=== PATIENT | female | born 1950 | race Caucasian/White ===

== ENCOUNTER 2019-10-19 17:47 | Inpatient (IN) ==
[2019-10-19] MEDS ORDERED: NS 0.9% 1000 ml BAG 1,000 ML IV ONE (19:23)
[2019-10-19] MEDS ORDERED: Morphine 4 MG/ML VIAL (1 ml) IV ONE (19:44)
[2019-10-19] MEDS ORDERED: Ondansetron 4 mg VIAL 2 MG/ML 2 ml VIAL IV ONE (19:45)
[2019-10-19 19:50] LABS: ABS Basophils 0.1 10^3/ul (0-0.2); ABS Eosinophils 0.3 10^3/ul (0-0.6); ABS Lymphocytes 1.2 10^3/ul (1.0-4.8); ABS Monocytes 0.8 10^3/ul (0-0.8); Eosinophil % 2.1 %; Hematocrit 41 % (35-47); Hemoglobin 13.7 g/dL (12.0-16.0); Lymphocyte % 9.7 %; Mean Corpuscular HGB Conc 33 g/dL (31-36); Mean Corpuscular Hemoglobin 31 pg (27-31); Mean Corpuscular Volume 94 fL (80-97); Mean Platelet Volume 6.5 fL (7.4-10.4); Platelet Count 378 10^3/uL (150-450); Red Blood Count 4.35 10^6 /uL (3.70-4.87); Red Cell Distribution Width 13 % (10-15); White Blood Count 12.5 10^3/uL (3.5-10.8)
[2019-10-19 20:08] LABS: Albumin 4.2 g/dL (3.2-5.2); Albumin/Globulin Ratio 1.4 (1-3); BUN/Creatinine Ratio 38.5 (8-20); Calcium 9.8 mg/dL (8.6-10.3); EGFR African American 141.1 (>60); EGFR Non-African American 116.6 (>60); Globulin 2.9 g/dL (2-4); Potassium 3.9 mmol/L (3.5-5.0); Total Bilirubin 0.3 mg/dL (0.2-1.0); Total Protein 7.1 g/dL (6.4-8.9)
[2019-10-19 20:09] LABS: Troponin I 0.01 ng/mL (<0.03)
[2019-10-19] MEDS ORDERED: Albuterol HFA INHALER 8 gm MDI INH PRN (20:40)
[2019-10-19] MEDS ORDERED: Senna TAB 8.6 mg TAB PO PRN (20:41)
[2019-10-19] MEDS ORDERED: Al Hydrox/Mg Hydrox/Simet LIQ 30 ML UDC PO PRN (20:42)
[2019-10-19 20:54] LABS: Magnesium 2.1 mg/dL (1.9-2.7)
[2019-10-19] MEDS ORDERED: hydrALAZINE 20 mg/ml 1 ML Vial IV IV SLOW PU PRN (20:57)
[2019-10-19] MEDS ORDERED: hydrALAZINE 20 mg/ml 1 ML Vial IV IV SLOW PU ONE (20:58)
[2019-10-19 22:00] LABS: Vitamin D Total 25(OH) 43.3 ng/mL (20-50)
[2019-10-19] MEDS: Heparin 5000 UNITS/ML VIAL(*) 1 ml vial SUBCUT SCH (23:38)
[2019-10-19 23:42] LABS: Activated Partial Thrombo Time 30.4 seconds (26.0-38.0); INR 0.98 (0.82-1.09)
[2019-10-20] MEDS ORDERED: NS 0.9% 1000 ml BAG 1,000 ML IV SCH
[2019-10-20] MEDS: Ondansetron 4 mg VIAL 2 MG/ML 2 ml VIAL IV PRN ×3 (00:33→13:57)
[2019-10-20] MEDS: oxyCODONE/Acetamin 5/325 mg TAB PO PRN ×3 (01:52→20:53)
[2019-10-20] MEDS: Heparin 5000 UNITS/ML VIAL(*) 1 ml vial SUBCUT SCH (05:34)
[2019-10-20 05:49] LABS: ABS Lymphocytes 0.5 10^3/ul (1.0-4.8); ABS Monocytes 0.2 10^3/ul (0-0.8); Eosinophil % 0.2 %; Hematocrit 38 % (35-47); Hemoglobin 12.8 g/dL (12.0-16.0); Mean Corpuscular HGB Conc 33 g/dL (31-36); Mean Corpuscular Hemoglobin 32 pg (27-31); Mean Corpuscular Volume 95 fL (80-97); Mean Platelet Volume 6.8 fL (7.4-10.4); Nucleated Red Blood Cells % 0.1; Platelet Count 300 10^3/uL (150-450); Red Blood Count 4.04 10^6 /uL (3.70-4.87); Red Cell Distribution Width 13 % (10-15); White Blood Count 7.8 10^3/uL (3.5-10.8)
[2019-10-20] MEDS: NS 0.9% 1000 ml BAG 1,000 ML IV SCH ×2 (05:55→20:50)
[2019-10-20 06:26] LABS: Calcium 9.1 mg/dL (8.6-10.3); Potassium 4.2 mmol/L (3.5-5.0)
[2019-10-20 06:31] LABS: BUN/Creatinine Ratio 40.4 (8-20); EGFR African American 158.5 (>60)
[2019-10-20] MEDS: Mometasone/Formoter 200/5 MDI INH SCH ×2 (08:29→19:40)
[2019-10-20 13:10] LABS: Urine Appearance Clear; Urine Color Yellow; Urine Ketones 1+ (Negative); Urine Protein 1+(30 mg/dL) (Negative); Urine Urobilinogen Negative (Negative)
[2019-10-20 13:11] LABS: Urine Bilirubin Negative (Negative); Urine Blood Negative (Negative); Urine Glucose Negative (Negative); Urine Nitrite Negative (Negative)
[2019-10-20 13:17] LABS: Urine Bacteria Absent (Absent); Urine Red Blood Cell Absent (Absent); Urine Squamous Epithelial Cell Present (Absent); Urine White Blood Cell Absent (Absent)
[2019-10-20] MEDS ORDERED: Heparin 5000 UNITS/ML VIAL(*) 1 ml vial SUBCUT SCH (18:00)
[2019-10-20 18:47] LABS: ABS Lymphocytes 1.2 10^3/ul (1.0-4.8); ABS Monocytes 0.6 10^3/ul (0-0.8); Eosinophil % 0.6 %; Hematocrit 35 % (35-47); Hemoglobin 11.8 g/dL (12.0-16.0); Lymphocyte % 16.1 %; Mean Corpuscular HGB Conc 33 g/dL (31-36); Mean Corpuscular Hemoglobin 32 pg (27-31); Mean Corpuscular Volume 95 fL (80-97); Mean Platelet Volume 6.7 fL (7.4-10.4); Nucleated Red Blood Cells % 0.1; Platelet Count 328 10^3/uL (150-450); Red Blood Count 3.74 10^6 /uL (3.70-4.87); Red Cell Distribution Width 13 % (10-15); White Blood Count 7.5 10^3/uL (3.5-10.8)
[2019-10-20] MEDS ORDERED: Heparin 5000 UNITS/ML VIAL(*) 1 ml vial SUBCUT ONE (19:00)
[2019-10-20 19:01] LABS: Activated Partial Thrombo Time 27.2 seconds (26.0-38.0); INR 1.03 (0.82-1.09)
[2019-10-20 19:02] LABS: EGFR African American 115.1 (>60); EGFR Non-African American 95.2 (>60)
[2019-10-21 05:24] LABS: ABS Basophils 0.1 10^3/ul (0-0.2); ABS Eosinophils 0.2 10^3/ul (0-0.6); ABS Lymphocytes 1.3 10^3/ul (1.0-4.8); ABS Monocytes 0.6 10^3/ul (0-0.8); Eosinophil % 2.1 %; Hematocrit 35 % (35-47); Hemoglobin 11.6 g/dL (12.0-16.0); Lymphocyte % 17.9 %; Mean Corpuscular HGB Conc 33 g/dL (31-36); Mean Corpuscular Hemoglobin 31 pg (27-31); Mean Corpuscular Volume 94 fL (80-97); Mean Platelet Volume 6.3 fL (7.4-10.4); Nucleated Red Blood Cells % 0.1; Platelet Count 296 10^3/uL (150-450); Red Blood Count 3.71 10^6 /uL (3.70-4.87); Red Cell Distribution Width 13 % (10-15); White Blood Count 7.4 10^3/uL (3.5-10.8)
[2019-10-21 05:43] LABS: EGFR African American 147.6 (>60); Potassium 3.8 mmol/L (3.5-5.0)
[2019-10-21] MEDS ORDERED: ceFAZolin 2 GM PREMIX in ORs 2 GM/50 ML BAG ONE (06:37)
[2019-10-21] MEDS ORDERED: fentaNYL 100 mcg/2 ml 50 MCG/ML VIAL ONE ×3 (07:02→09:45)
[2019-10-21] MEDS ORDERED: Succinylcholine 200 mg VIAL 20 mg/ml 10 ml VIAL (200 mg) ONE (07:03)
[2019-10-21] MEDS ORDERED: Rocuronium 50 mg VIAL 10 mg/ml 5 ml VIAL (50 mg) ONE (07:51)
[2019-10-21] MEDS ORDERED: Metoclopramide 5 MG/ML VIAL (10 mg) IV PRN (08:12)
[2019-10-21] MEDS ORDERED: Naloxone 0.4 mg VIAL 0.4 mg/ml 1 ml VIAL IV PRN (08:12)
[2019-10-21] MEDS ORDERED: Phenylephrine 40 mcg/mL 10mL (400mcg) SYRINGE ONE (08:50)
[2019-10-21] MEDS ORDERED: Ondansetron 4 mg VIAL 2 MG/ML 2 ml VIAL ONE (09:10)
[2019-10-21] MEDS ORDERED: Acetaminophen IV 1 GM/100ML 100 ML ONE (09:10)
[2019-10-21] MEDS ORDERED: Midazolam 2 mg/2 ml VIAL 1 mg/ml 2 ml VIAL (2 mg) ONE (09:33)
[2019-10-21] MEDS ORDERED: Labetalol IV 5 MG/ML 20 ml VIAL ONE (09:45)
[2019-10-21] MEDS: fentaNYL 100 mcg/2 ml 50 MCG/ML VIAL IV PRN ×3 (09:55→10:05)
[2019-10-21] MEDS: Mometasone/Formoter 200/5 MDI INH SCH ×2 (10:29→20:34)
[2019-10-21] MEDS ORDERED: oxyCODONE/Acetamin 5/325 mg TAB ONE (10:35)
[2019-10-21] MEDS: oxyCODONE/Acetamin 5/325 mg TAB PO PRN ×3 (10:38→22:28)
[2019-10-21] MEDS ORDERED: Lactated Ringers 1000 ml BAG 1,000 ML IV ONE (11:33)
[2019-10-21] MEDS: ceFAZolin 1 GM* X 3 DOSES POST-OP Q8H (AddVan) IVPB SCH ×2 (16:08→23:19)
[2019-10-22] MEDS: oxyCODONE/Acetamin 5/325 mg TAB PO PRN ×2 (03:06→23:23)
[2019-10-22 06:24] LABS: Calcium 8.3 mg/dL (8.6-10.3); EGFR Non-African American 111.6 (>60); Potassium 3.8 mmol/L (3.5-5.0)
[2019-10-22] MEDS: ceFAZolin 1 GM* X 3 DOSES POST-OP Q8H (AddVan) IVPB SCH (07:45)
[2019-10-22] MEDS: Mometasone/Formoter 200/5 MDI INH SCH ×2 (08:07→20:33)
[2019-10-23] MEDS: oxyCODONE/Acetamin 5/325 mg TAB PO PRN ×2 (03:36→15:30)
[2019-10-23 05:20] LABS: ABS Eosinophils 0.1 10^3/ul (0-0.6); ABS Lymphocytes 1.1 10^3/ul (1.0-4.8); ABS Monocytes 0.8 10^3/ul (0-0.8); Eosinophil % 1.4 %; Hematocrit 24 % (35-47); Hemoglobin 8.1 g/dL (12.0-16.0); Lymphocyte % 14.2 %; Mean Corpuscular HGB Conc 33 g/dL (31-36); Mean Corpuscular Hemoglobin 31 pg (27-31); Mean Corpuscular Volume 95 fL (80-97); Mean Platelet Volume 6.9 fL (7.4-10.4); Platelet Count 243 10^3/uL (150-450); Red Blood Count 2.57 10^6 /uL (3.70-4.87); Red Cell Distribution Width 13 % (10-15); White Blood Count 7.6 10^3/uL (3.5-10.8)
[2019-10-23 05:37] LABS: BUN/Creatinine Ratio 28.9 (8-20); Calcium 8.3 mg/dL (8.6-10.3); EGFR African American 202.6 (>60); EGFR Non-African American 167.4 (>60); Magnesium 1.8 mg/dL (1.9-2.7); Potassium 3.8 mmol/L (3.5-5.0)
[2019-10-23] MEDS: Mometasone/Formoter 200/5 MDI INH SCH ×2 (08:32→19:43)
[2019-10-23] MEDS ORDERED: Magnesium Sulfate IV 1GM/100ML 1 GM/100 ML BAG IV ONE (10:53)
[2019-10-24] MEDS: oxyCODONE/Acetamin 5/325 mg TAB PO PRN ×3 (01:12→12:37)
[2019-10-24 05:14] LABS: ABS Basophils 0.1 10^3/ul (0-0.2); ABS Eosinophils 0.3 10^3/ul (0-0.6); ABS Lymphocytes 1.3 10^3/ul (1.0-4.8); ABS Monocytes 0.6 10^3/ul (0-0.8); Eosinophil % 3.6 %; Hematocrit 25 % (35-47); Hemoglobin 8.2 g/dL (12.0-16.0); Lymphocyte % 18.1 %; Mean Corpuscular HGB Conc 33 g/dL (31-36); Mean Corpuscular Hemoglobin 31 pg (27-31); Mean Corpuscular Volume 94 fL (80-97); Mean Platelet Volume 6.9 fL (7.4-10.4); Platelet Count 290 10^3/uL (150-450); Red Blood Count 2.64 10^6 /uL (3.70-4.87); Red Cell Distribution Width 13 % (10-15); White Blood Count 7.2 10^3/uL (3.5-10.8)
[2019-10-24] MEDS: Mometasone/Formoter 200/5 MDI INH SCH (08:03)
[2019-10-24] MEDS ORDERED: Ketorolac 10 mg TAB (NF) PO PRN (10:43)
[2019-10-24 11:38] VITALS: BP 113/55
[2019-10-24] MEDS ORDERED: Senna TAB 8.6 mg TAB PO SCH (21:00)
== END 2019-10-24 13:55 | DRG 470 ==
LOC: ED 17:47 → SSU 20:42
PROVIDERS: ADMIT Pediatrics; ATTEND Internal Medicine

== ENCOUNTER 2019-10-24 12:36 | Inpatient (IN) ==
[2019-10-24] MEDS ORDERED: Magnesium Hydroxide LIQ 30 ML UDC PO PRN (13:10)
[2019-10-24] MEDS ORDERED: Al Hydrox/Mg Hydrox/Simet LIQ 30 ML UDC PO PRN (13:10)
[2019-10-24] MEDS ORDERED: Albuterol HFA INHALER 8 gm MDI INH PRN (13:23)
[2019-10-24] MEDS ORDERED: diPHENhydraMINE 25 mg TAB PO PRN (13:26)
[2019-10-24] MEDS ORDERED: Polyethylene Glycol 3350 17 GM PACKET PO PRN (13:34)
[2019-10-24] MEDS: Senna TAB 8.6 mg TAB PO SCH (21:35)
[2019-10-24] MEDS: Mometasone/Formoter 200/5 MDI INH SCH (21:36)
[2019-10-25 05:24] LABS: ABS Eosinophils 0.3 10^3/ul (0-0.6); ABS Lymphocytes 1.3 10^3/ul (1.0-4.8); ABS Monocytes 0.6 10^3/ul (0-0.8); Eosinophil % 5.9 %; Hematocrit 24 % (35-47); Hemoglobin 8.1 g/dL (12.0-16.0); Lymphocyte % 23.3 %; Mean Corpuscular HGB Conc 33 g/dL (31-36); Mean Corpuscular Hemoglobin 31 pg (27-31); Mean Corpuscular Volume 93 fL (80-97); Mean Platelet Volume 6.5 fL (7.4-10.4); Platelet Count 333 10^3/uL (150-450); Red Cell Distribution Width 13 % (10-15); White Blood Count 5.7 10^3/uL (3.5-10.8)
[2019-10-25 05:42] LABS: Albumin 2.7 g/dL (3.2-5.2); Albumin/Globulin Ratio 1.1 (1-3); BUN/Creatinine Ratio 31.9 (8-20); Calcium 8.5 mg/dL (8.6-10.3); EGFR African American 158.5 (>60); Globulin 2.4 g/dL (2-4); Potassium 4.1 mmol/L (3.5-5.0); Total Bilirubin 0.5 mg/dL (0.2-1.0); Total Protein 5.1 g/dL (6.4-8.9)
[2019-10-25] MEDS: Multivitamins/Minerals TAB PO SCH (08:19)
[2019-10-25] MEDS: Mometasone/Formoter 200/5 MDI INH SCH ×2 (08:21→21:17)
[2019-10-25] MEDS: Senna TAB 8.6 mg TAB PO SCH (21:20)
[2019-10-26] MEDS: Multivitamins/Minerals TAB PO SCH (08:49)
[2019-10-26] MEDS: Mometasone/Formoter 200/5 MDI INH SCH ×2 (08:51→21:39)
[2019-10-26] MEDS: Senna TAB 8.6 mg TAB PO SCH (21:37)
[2019-10-27] MEDS: Mometasone/Formoter 200/5 MDI INH SCH ×2 (08:47→20:01)
[2019-10-27] MEDS: Multivitamins/Minerals TAB PO SCH (08:47)
[2019-10-27] MEDS: Senna TAB 8.6 mg TAB PO SCH (19:59)
[2019-10-28] MEDS: Multivitamins/Minerals TAB PO SCH (08:49)
[2019-10-28] MEDS: Mometasone/Formoter 200/5 MDI INH SCH ×2 (09:01→20:54)
[2019-10-28] MEDS: Senna TAB 8.6 mg TAB PO SCH (20:52)
[2019-10-29] MEDS: Multivitamins/Minerals TAB PO SCH (08:40)
[2019-10-29] MEDS: Mometasone/Formoter 200/5 MDI INH SCH ×2 (08:40→21:08)
[2019-10-29] MEDS: Senna TAB 8.6 mg TAB PO SCH (21:09)
[2019-10-30] MEDS: Multivitamins/Minerals TAB PO SCH (08:42)
[2019-10-30] MEDS: Mometasone/Formoter 200/5 MDI INH SCH ×2 (08:42→21:52)
[2019-10-30] MEDS ORDERED: Senna TAB 8.6 mg TAB PO PRN (10:52)
[2019-10-31] MEDS: Multivitamins/Minerals TAB PO SCH (09:41)
[2019-10-31] MEDS: Mometasone/Formoter 200/5 MDI INH SCH ×2 (09:41→20:48)
[2019-11-01 05:49] LABS: ABS Eosinophils 0.3 10^3/ul (0-0.6); ABS Monocytes 0.7 10^3/ul (0-0.8); Hematocrit 25 % (35-47); Hemoglobin 8.8 g/dL (12.0-16.0); Lymphocyte % 27.9 %; Mean Corpuscular HGB Conc 35 g/dL (31-36); Mean Corpuscular Hemoglobin 33 pg (27-31); Mean Corpuscular Volume 94 fL (80-97); Mean Platelet Volume 6.1 fL (7.4-10.4); Platelet Count 647 10^3/uL (150-450); Red Cell Distribution Width 14 % (10-15); White Blood Count 7.2 10^3/uL (3.5-10.8)
[2019-11-01 06:14] LABS: Albumin 3.1 g/dL (3.2-5.2); Albumin/Globulin Ratio 1.2 (1-3); BUN/Creatinine Ratio 32.2 (8-20); EGFR African American 121.9 (>60); EGFR Non-African American 100.8 (>60); Globulin 2.6 g/dL (2-4); Potassium 4.1 mmol/L (3.5-5.0); Total Bilirubin 0.3 mg/dL (0.2-1.0); Total Protein 5.7 g/dL (6.4-8.9)
[2019-11-01] MEDS: Mometasone/Formoter 200/5 MDI INH SCH ×2 (08:42→19:58)
[2019-11-01] MEDS: Multivitamins/Minerals TAB PO SCH (08:43)
[2019-11-02] MEDS: Mometasone/Formoter 200/5 MDI INH SCH ×2 (10:22→20:53)
[2019-11-02] MEDS: Multivitamins/Minerals TAB PO SCH (10:22)
[2019-11-03] MEDS: Multivitamins/Minerals TAB PO SCH (10:11)
[2019-11-03] MEDS: Mometasone/Formoter 200/5 MDI INH SCH ×2 (10:14→20:04)
[2019-11-04] MEDS: Mometasone/Formoter 200/5 MDI INH SCH ×2 (07:39→19:32)
[2019-11-04] MEDS: Multivitamins/Minerals TAB PO SCH (07:41)
[2019-11-05] MEDS: Multivitamins/Minerals TAB PO SCH (09:09)
[2019-11-05] MEDS: PTO: LevoCETirizine 5 mg TAB (NF) PO SCH ×3 (09:09→21:46)
[2019-11-05] MEDS: Mometasone/Formoter 200/5 MDI INH SCH ×2 (09:25→21:15)
[2019-11-06] MEDS: Mometasone/Formoter 200/5 MDI INH SCH ×2 (09:29→21:39)
[2019-11-06] MEDS: Multivitamins/Minerals TAB PO SCH (09:32)
[2019-11-06] MEDS: PTO: LevoCETirizine 5 mg TAB (NF) PO SCH (21:35)
[2019-11-07] MEDS: Mometasone/Formoter 200/5 MDI INH SCH ×2 (08:54→21:15)
[2019-11-07] MEDS: Multivitamins/Minerals TAB PO SCH (09:05)
[2019-11-07] MEDS: PTO: LevoCETirizine 5 mg TAB (NF) PO SCH (21:14)
[2019-11-08 06:50] LABS: ABS Eosinophils 0.3 10^3/ul (0-0.6); ABS Lymphocytes 1.4 10^3/ul (1.0-4.8); ABS Monocytes 0.6 10^3/ul (0-0.8); Eosinophil % 5.4 %; Hematocrit 28 % (35-47); Hemoglobin 9.3 g/dL (12.0-16.0); Lymphocyte % 28.8 %; Mean Corpuscular HGB Conc 34 g/dL (31-36); Mean Corpuscular Hemoglobin 32 pg (27-31); Mean Corpuscular Volume 94 fL (80-97); Mean Platelet Volume 5.9 fL (7.4-10.4); Platelet Count 657 10^3/uL (150-450); Red Blood Count 2.93 10^6 /uL (3.70-4.87); Red Cell Distribution Width 15 % (10-15)
[2019-11-08 07:09] LABS: Albumin 3.2 g/dL (3.2-5.2); Albumin/Globulin Ratio 1.2 (1-3); BUN/Creatinine Ratio 32.8 (8-20); EGFR African American 124.4 (>60); EGFR Non-African American 102.8 (>60); Globulin 2.6 g/dL (2-4); Total Bilirubin 0.3 mg/dL (0.2-1.0); Total Protein 5.8 g/dL (6.4-8.9)
[2019-11-08] MEDS: Multivitamins/Minerals TAB PO SCH (07:25)
[2019-11-08] MEDS: Mometasone/Formoter 200/5 MDI INH SCH ×2 (07:25→21:36)
[2019-11-08] MEDS: PTO: LevoCETirizine 5 mg TAB (NF) PO SCH (21:34)
[2019-11-09] MEDS: Multivitamins/Minerals TAB PO SCH (09:39)
[2019-11-09] MEDS: Mometasone/Formoter 200/5 MDI INH SCH ×2 (09:39→21:05)
[2019-11-09] MEDS: PTO: LevoCETirizine 5 mg TAB (NF) PO SCH (21:03)
[2019-11-10] MEDS: Multivitamins/Minerals TAB PO SCH (08:04)
[2019-11-10] MEDS: Mometasone/Formoter 200/5 MDI INH SCH ×2 (08:11→20:16)
[2019-11-10] MEDS: PTO: LevoCETirizine 5 mg TAB (NF) PO SCH (20:15)
[2019-11-11] MEDS: Mometasone/Formoter 200/5 MDI INH SCH ×2 (09:54→20:59)
[2019-11-11] MEDS: Multivitamins/Minerals TAB PO SCH (09:59)
[2019-11-11] MEDS: PTO: LevoCETirizine 5 mg TAB (NF) PO SCH (20:56)
[2019-11-12] MEDS: Multivitamins/Minerals TAB PO SCH (09:00)
[2019-11-12] MEDS: Mometasone/Formoter 200/5 MDI INH SCH ×2 (09:01→20:48)
[2019-11-12] MEDS: PTO: LevoCETirizine 5 mg TAB (NF) PO SCH (20:47)
[2019-11-13] MEDS: Mometasone/Formoter 200/5 MDI INH SCH ×2 (09:48→20:16)
[2019-11-13] MEDS: Multivitamins/Minerals TAB PO SCH (09:49)
[2019-11-13] MEDS: PTO: LevoCETirizine 5 mg TAB (NF) PO SCH (20:16)
[2019-11-14] MEDS: Mometasone/Formoter 200/5 MDI INH SCH ×2 (08:08→20:47)
[2019-11-14] MEDS: Multivitamins/Minerals TAB PO SCH (08:08)
[2019-11-14] MEDS: PTO: LevoCETirizine 5 mg TAB (NF) PO SCH (20:46)
[2019-11-15 05:45] LABS: ABS Eosinophils 0.2 10^3/ul (0-0.6); ABS Lymphocytes 1.7 10^3/ul (1.0-4.8); ABS Monocytes 0.6 10^3/ul (0-0.8); Hematocrit 30 % (35-47); Hemoglobin 9.9 g/dL (12.0-16.0); Lymphocyte % 31.6 %; Mean Corpuscular HGB Conc 33 g/dL (31-36); Mean Corpuscular Hemoglobin 31 pg (27-31); Mean Corpuscular Volume 93 fL (80-97); Mean Platelet Volume 6.1 fL (7.4-10.4); Platelet Count 507 10^3/uL (150-450); Red Blood Count 3.18 10^6 /uL (3.70-4.87); Red Cell Distribution Width 15 % (10-15); White Blood Count 5.3 10^3/uL (3.5-10.8)
[2019-11-15 06:01] LABS: Albumin 3.4 g/dL (3.2-5.2); Albumin/Globulin Ratio 1.4 (1-3); BUN/Creatinine Ratio 39.6 (8-20); Calcium 8.8 mg/dL (8.6-10.3); EGFR African American 154.7 (>60); EGFR Non-African American 127.9 (>60); Globulin 2.4 g/dL (2-4); Potassium 4.1 mmol/L (3.5-5.0); Total Bilirubin 0.3 mg/dL (0.2-1.0); Total Protein 5.8 g/dL (6.4-8.9)
[2019-11-15] MEDS: Multivitamins/Minerals TAB PO SCH (09:21)
[2019-11-15] MEDS: Mometasone/Formoter 200/5 MDI INH SCH ×2 (09:25→21:20)
[2019-11-15] MEDS: PTO: LevoCETirizine 5 mg TAB (NF) PO SCH (21:18)
[2019-11-16 06:25] VITALS: BP 147/74
[2019-11-16] MEDS: Multivitamins/Minerals TAB PO SCH (09:32)
[2019-11-16] MEDS: Mometasone/Formoter 200/5 MDI INH SCH (09:36)
== END 2019-11-16 11:15 | disposition home health service (06) | DRG 560 ==
LOC: PMRU 14:23
PROVIDERS: ADMIT Physical Medicine & Rehabilitation; ATTEND Physical Medicine & Rehabilitation

== ENCOUNTER 2022-09-01 10:51 | Inpatient (IN) ==
[2022-09-01] MEDS ORDERED: Levalbuterol 1.25MG/0.5ML NEB.SOL INH ONE ×2 (12:17→12:19)
[2022-09-01 13:47] LABS: Hematocrit 25.4 % (35-45); Hemoglobin 8.6 g/dL (11.5-14.3); Mean Corpuscular Hemoglobin 30.4 pg (27-33); Mean Corpuscular Hgb Conc 33.9 g/dL (31-36); Mean Corpuscular Volume 89.7 fL (80-97); Mean Platelet Volume 6.6 fL (7.5-11.2); Platelet Count 323 10^3/uL (150-450); Red Blood Count 2.84 10^6/uL (3.63-4.92); Red Cell Distribution Width 14.3 % (12-17); White Blood Count 6.6 10^3/uL (3.8-11.8)
[2022-09-01 13:48] LABS: Venous Bicarbonate HCO3 29.3 mmol/L (24-28)
[2022-09-01] MEDS ORDERED: Azithromycin 500 mg/250 ml NS 500 MG/250 ML BAG IVPB ONE (13:52)
[2022-09-01] MEDS ORDERED: cefTRIAXone 1 gm/50 mL D5W 1 GM/50 ML BAG IV ONE (13:52)
[2022-09-01 13:55] LABS: INR 1.8 (0.88-1.18)
[2022-09-01] MEDS ORDERED: methylPREDNISolone SOD SUCC 125 mg 2 ML VIAL IV ONE (14:08)
[2022-09-01 14:12] LABS: High Sens Troponin Baseline 26 pg/mL (<15)
[2022-09-01] MEDS ORDERED: Acetaminophen IV 1 GM/100ML 1,000 MG/100 ML BAG IV ONE ×2 (14:19→14:25)
[2022-09-01 14:32] LABS: ALT 12 U/L (7-52); AST 11 U/L (13-39); Albumin 3.2 g/dL (3.2-5.2); Albumin/Globulin Ratio 1.2 (1-3); Alkaline Phosphatase 117 U/L (35-149); Anion Gap 10 mmol/L (2-16); Blood Urea Nitrogen 17 mg/dL (6-24); CO2 Carbon Dioxide 31 mmol/L (22-32); Calcium 8.8 mg/dL (8.6-10.3); Chloride 95 mmol/L (101-111); Creatinine, Serum 0.77 mg/dL (0.51-0.95); Globulin 2.7 g/dL (2-4); Glucose 91 mg/dL (70-100); Lipase < 10 U/L (11.0-82.0); Magnesium 1.8 mg/dL (1.9-2.7); Potassium 3.6 mmol/L (3.5-5.0); Sodium 136 mmol/L (135-145); Total Protein 5.9 g/dL (6.4-8.9); eGFR CKD-EPI 81.4 (>60)
[2022-09-01 14:34] LABS: ABS Lymphocytes 0.1 10^3/uL (1.0-4.8); ABS Monocytes 0.1 10^3/uL (0.0-0.9); ABS Neutrophils 6.4 10^3/uL (1.5-7.6); ABS Nucleated RBC 0.01 10^3/ul; Eosinophil % 0.1 %; Lymphocyte % 1.4 %; Nucleated Red Blood Cells % 0.2 /100 WBC (0.0-0.4)
[2022-09-01 15:13] LABS: High Sensitivity Troponin 1 Hr 11 pg/mL (<15)
[2022-09-01] MEDS: Heparin DRIP 25,000 UNITS BAG 25,000 UNITS/500 ML BAG IV SCH (15:37)
[2022-09-01] MEDS ORDERED: Senna TAB 8.6 mg TAB PO PRN (16:00)
[2022-09-01] MEDS ORDERED: Magnesium Hydroxide LIQ 30 ML UDC PO PRN (16:00)
[2022-09-01] MEDS ORDERED: Heparin 5000 UNITS/ML 1 mL VIAL IV SCH (16:00)
[2022-09-01] MEDS ORDERED: Polyethylene Glycol 3350 17 GM PACKET PO PRN (16:00)
[2022-09-01] MEDS ORDERED: Ondansetron 4 mg VIAL 2 MG/ML 2 ml VIAL IV PRN (16:00)
[2022-09-01] MEDS: Albuterol/Ipratropium NEB.SOL (2.5/0.5 MG) 3 ML NEB.SOLN INH SCH (18:50)
[2022-09-01] MEDS: Magic MouthWash1-BEN/MAAL/LIDO 180 ML BTL SWISH SPIT SCH ×2 (21:14→22:30)
[2022-09-01 22:20] LABS: Hemoglobin 7.8 g/dL (11.5-14.3)
[2022-09-01 23:10] LABS: Creatinine, Serum 0.78 mg/dL (0.51-0.95); eGFR CKD-EPI 80.1 (>60)
[2022-09-01 23:13] LABS: Potassium 3.5 mmol/L (3.5-5.0)
[2022-09-02 01:50] LABS: Hematocrit 23.1 % (35-45); Hemoglobin 7.9 g/dL (11.5-14.3)
[2022-09-02 05:21] LABS: ABS Monocytes 0.1 10^3/uL (0.0-0.9); Hematocrit 22.8 % (35-45); Hemoglobin 7.9 g/dL (11.5-14.3); Lymphocyte % 0.6 %; Mean Corpuscular Hemoglobin 30.8 pg (27-33); Mean Corpuscular Hgb Conc 34.5 g/dL (31-36); Mean Corpuscular Volume 89.2 fL (80-97); Mean Platelet Volume 6.8 fL (7.5-11.2); Platelet Count 314 10^3/uL (150-450); Red Blood Count 2.55 10^6/uL (3.63-4.92); Red Cell Distribution Width 14.4 % (12-17); White Blood Count 6.2 10^3/uL (3.8-11.8)
[2022-09-02] MEDS: Albuterol/Ipratropium NEB.SOL (2.5/0.5 MG) 3 ML NEB.SOLN INH SCH ×4 (06:55→20:06)
[2022-09-02] MEDS: cefTRIAXone 1 gm/50 mL D5W 1 GM/50 ML BAG IV SCH (08:31)
[2022-09-02] MEDS: Cholecalciferol (VIT D3) 400 units TAB PO SCH (08:32)
[2022-09-02] MEDS: Magic MouthWash1-BEN/MAAL/LIDO 180 ML BTL SWISH SPIT SCH ×4 (08:34→18:36)
[2022-09-02] MEDS: Heparin DRIP 25,000 UNITS BAG 25,000 UNITS/500 ML BAG IV SCH (09:18)
[2022-09-02] MEDS: methylPREDNISolone SOD SUCC 40 mg/ml 1 ml VIAL IV SCH (18:38)
[2022-09-03 05:59] LABS: ABS Lymphocytes 0.1 10^3/uL (1.0-4.8); ABS Monocytes 0.1 10^3/uL (0.0-0.9); ABS Neutrophils 5.4 10^3/uL (1.5-7.6); Hematocrit 22.2 % (35-45); Hemoglobin 7.6 g/dL (11.5-14.3); Mean Corpuscular Hemoglobin 30.7 pg (27-33); Mean Corpuscular Hgb Conc 34.4 g/dL (31-36); Mean Corpuscular Volume 89.3 fL (80-97); Mean Platelet Volume 6.7 fL (7.5-11.2); Nucleated Red Blood Cells % 0.1 /100 WBC (0.0-0.4); Platelet Count 331 10^3/uL (150-450); Red Blood Count 2.49 10^6/uL (3.63-4.92); Red Cell Distribution Width 14.6 % (12-17); White Blood Count 5.6 10^3/uL (3.8-11.8)
[2022-09-03 06:32] LABS: Calcium 7.9 mg/dL (8.6-10.3); Creatinine, Serum 0.74 mg/dL (0.51-0.95); eGFR CKD-EPI 85.4 (>60)
[2022-09-03] MEDS: Albuterol/Ipratropium NEB.SOL (2.5/0.5 MG) 3 ML NEB.SOLN INH SCH ×4 (07:12→19:30)
[2022-09-03] MEDS ORDERED: Potassium Chlor 20 meq TAB.ER PO ONE (07:26)
[2022-09-03] MEDS: methylPREDNISolone SOD SUCC 40 mg/ml 1 ml VIAL IV SCH ×2 (07:42→18:23)
[2022-09-03 07:53] LABS: Magnesium 2.1 mg/dL (1.9-2.7)
[2022-09-03] MEDS: KCL 20 MEQ/100 ML IVPREMIX 20 MEQ/100 ML BAG IV SCH ×2 (08:53→11:06)
[2022-09-03] MEDS: Aspirin EC 81 mg TAB.EC (enteric coated) PO SCH (08:53)
[2022-09-03] MEDS: Cholecalciferol (VIT D3) 400 units TAB PO SCH (08:53)
[2022-09-03] MEDS: cefTRIAXone 1 gm/50 mL D5W 1 GM/50 ML BAG IV SCH (08:53)
[2022-09-03] MEDS: Magic MouthWash1-BEN/MAAL/LIDO 180 ML BTL SWISH SPIT SCH ×4 (08:54→20:24)
[2022-09-03] MEDS ORDERED: cloNIDine 0.2 MG PATCH 0.2 MG/24 HR 7 DAY PATCH TRANSDERM SCH (12:00)
[2022-09-03] MEDS: Heparin DRIP 25,000 UNITS BAG 25,000 UNITS/500 ML BAG IV SCH (23:51)
[2022-09-04] MEDS: Albuterol/Ipratropium NEB.SOL (2.5/0.5 MG) 3 ML NEB.SOLN INH SCH ×5 (01:34→17:57)
[2022-09-04 02:21] LABS: PCO2 Arterial 42 mmHg (35-45); PO2 Arterial 90 mmHg (80-100)
[2022-09-04] MEDS: methylPREDNISolone SOD SUCC 40 mg/ml 1 ml VIAL IV SCH ×2 (05:54→16:24)
[2022-09-04] MEDS ORDERED: diazePAM INJ CARPUJECT 5 MG/ML SYRINGE IV PRN (08:26)
[2022-09-04] MEDS ORDERED: Iohexol 350 (CONTRAST) 500 ML MDV IV ONE (08:47)
[2022-09-04] MEDS: Cholecalciferol (VIT D3) 400 units TAB PO SCH (09:25)
[2022-09-04] MEDS: Aspirin EC 81 mg TAB.EC (enteric coated) PO SCH (09:31)
[2022-09-04 09:57] LABS: Hematocrit 23.7 % (35-45); Hemoglobin 8.1 g/dL (11.5-14.3); Mean Corpuscular Hemoglobin 30.1 pg (27-33); Mean Corpuscular Hgb Conc 34.2 g/dL (31-36); Mean Corpuscular Volume 88.2 fL (80-97); Mean Platelet Volume 6.7 fL (7.5-11.2); Platelet Count 414 10^3/uL (150-450); Red Blood Count 2.69 10^6/uL (3.63-4.92); Red Cell Distribution Width 14.8 % (12-17); White Blood Count 6.1 10^3/uL (3.8-11.8)
[2022-09-04 10:12] LABS: Calcium 8.3 mg/dL (8.6-10.3); Creatinine, Serum 0.72 mg/dL (0.51-0.95); Potassium 3.4 mmol/L (3.5-5.0); eGFR CKD-EPI 88.2 (>60)
[2022-09-04 10:18] LABS: ABS Lymphocytes 0.1 10^3/uL (1.0-4.8); ABS Monocytes 0.2 10^3/uL (0.0-0.9); ABS Neutrophils 5.8 10^3/uL (1.5-7.6); ABS Nucleated RBC 0.02 10^3/ul; Lymphocyte % 0.9 %; Nucleated Red Blood Cells % 0.3 /100 WBC (0.0-0.4)
[2022-09-04] MEDS: cefTRIAXone 1 gm/50 mL D5W 1 GM/50 ML BAG IV SCH (10:54)
[2022-09-04] MEDS ORDERED: Potassium Chlor 20 meq TAB.ER PO ONE (11:53)
[2022-09-04] MEDS: Magic MouthWash1-BEN/MAAL/LIDO 180 ML BTL SWISH SPIT SCH ×4 (12:12→23:07)
[2022-09-04] MEDS ORDERED: Potassium Chloride LIQUID 20 MEQ/15 ML LIQUID PO ONE (13:03)
[2022-09-04] MEDS: Albuterol/Ipratropium NEB.SOL (2.5/0.5 MG) 3 ML NEB.SOLN INH PRN (22:13)
[2022-09-05] MEDS: methylPREDNISolone SOD SUCC 40 mg/ml 1 ml VIAL IV SCH ×2 (05:06→16:05)
[2022-09-05 05:55] LABS: Hematocrit 24.2 % (35-45); Hemoglobin 8.2 g/dL (11.5-14.3); Mean Corpuscular Hemoglobin 30.5 pg (27-33); Mean Corpuscular Volume 89.8 fL (80-97); Mean Platelet Volume 6.4 fL (7.5-11.2); Platelet Count 410 10^3/uL (150-450); Red Cell Distribution Width 14.6 % (12-17); White Blood Count 5.5 10^3/uL (3.8-11.8)
[2022-09-05 06:13] LABS: Creatinine, Serum 0.7 mg/dL (0.51-0.95); Potassium 3.2 mmol/L (3.5-5.0); eGFR CKD-EPI 91.3 (>60)
[2022-09-05] MEDS: Albuterol/Ipratropium NEB.SOL (2.5/0.5 MG) 3 ML NEB.SOLN INH SCH ×4 (07:33→17:40)
[2022-09-05 08:45] LABS: ABS Lymphocytes 0.1 10^3/uL (1.0-4.8); ABS Monocytes 0.3 10^3/uL (0.0-0.9); ABS Nucleated RBC 0.01 10^3/ul; Lymphocyte % 1.6 %; Nucleated Red Blood Cells % 0.2 /100 WBC (0.0-0.4)
[2022-09-05] MEDS: cefTRIAXone 1 gm/50 mL D5W 1 GM/50 ML BAG IV SCH (09:00)
[2022-09-05] MEDS: Cholecalciferol (VIT D3) 400 units TAB PO SCH (09:07)
[2022-09-05] MEDS: Aspirin EC 81 mg TAB.EC (enteric coated) PO SCH (09:08)
[2022-09-05] MEDS: Magic MouthWash1-BEN/MAAL/LIDO 180 ML BTL SWISH SPIT SCH ×4 (10:52→20:47)
[2022-09-05] MEDS ORDERED: Potassium Chlor 10 meq TAB PO ONE (16:01)
[2022-09-05] MEDS ORDERED: Furosemide 20 mg/2 ml IV VIAL IV SLOW PU ONE (17:51)
[2022-09-05] MEDS: Albuterol/Ipratropium NEB.SOL (2.5/0.5 MG) 3 ML NEB.SOLN INH PRN (22:56)
[2022-09-06] MEDS: methylPREDNISolone SOD SUCC 40 mg/ml 1 ml VIAL IV SCH ×2 (05:16→18:19)
[2022-09-06 05:40] LABS: Hematocrit 22.3 % (35-45); Hemoglobin 7.7 g/dL (11.5-14.3); Mean Corpuscular Hemoglobin 30.7 pg (27-33); Mean Corpuscular Hgb Conc 34.7 g/dL (31-36); Mean Corpuscular Volume 88.6 fL (80-97); Mean Platelet Volume 6.3 fL (7.5-11.2); Platelet Count 472 10^3/uL (150-450); Red Blood Count 2.51 10^6/uL (3.63-4.92); Red Cell Distribution Width 14.7 % (12-17); White Blood Count 5.9 10^3/uL (3.8-11.8)
[2022-09-06 06:10] LABS: C Reactive Protein 99.42 mg/L (<8.01); Calcium 8.1 mg/dL (8.6-10.3); Creatinine, Serum 0.74 mg/dL (0.51-0.95); Magnesium 1.9 mg/dL (1.9-2.7); Potassium 3.7 mmol/L (3.5-5.0); eGFR CKD-EPI 85.4 (>60)
[2022-09-06 06:13] LABS: Anisocytosis 1+
[2022-09-06 06:14] LABS: ABS Lymphocytes 0.1 10^3/uL (1.0-4.8); ABS Monocytes 0.4 10^3/uL (0.0-0.9); ABS Neutrophils 5.3 10^3/uL (1.5-7.6); ABS Nucleated RBC 0.01 10^3/ul; Lymphocyte % 1.6 %; Nucleated Red Blood Cells % 0.2 /100 WBC (0.0-0.4)
[2022-09-06] MEDS: Albuterol/Ipratropium NEB.SOL (2.5/0.5 MG) 3 ML NEB.SOLN INH SCH ×6 (07:01→23:15)
[2022-09-06] MEDS: cefTRIAXone 1 gm/50 mL D5W 1 GM/50 ML BAG IV SCH (07:34)
[2022-09-06] MEDS: Potassium Chlor 10 meq TAB PO SCH (07:35)
[2022-09-06] MEDS: Cholecalciferol (VIT D3) 400 units TAB PO SCH (07:35)
[2022-09-06] MEDS: Aspirin EC 81 mg TAB.EC (enteric coated) PO SCH (07:35)
[2022-09-06] MEDS: Magic MouthWash1-BEN/MAAL/LIDO 180 ML BTL SWISH SPIT SCH ×4 (07:35→21:47)
[2022-09-07] MEDS: Albuterol/Ipratropium NEB.SOL (2.5/0.5 MG) 3 ML NEB.SOLN INH SCH ×6 (02:07→22:39)
[2022-09-07 05:45] LABS: Hematocrit 24.7 % (35-45); Hemoglobin 8.3 g/dL (11.5-14.3); Mean Corpuscular Hemoglobin 30.4 pg (27-33); Mean Corpuscular Hgb Conc 33.5 g/dL (31-36); Mean Corpuscular Volume 90.8 fL (80-97); Mean Platelet Volume 6.5 fL (7.5-11.2); Platelet Count 542 10^3/uL (150-450); Red Blood Count 2.72 10^6/uL (3.63-4.92); Red Cell Distribution Width 14.9 % (12-17); White Blood Count 6.1 10^3/uL (3.8-11.8)
[2022-09-07] MEDS: methylPREDNISolone SOD SUCC 40 mg/ml 1 ml VIAL IV SCH ×2 (06:17→16:08)
[2022-09-07 06:21] LABS: Calcium 8.4 mg/dL (8.6-10.3); Creatinine, Serum 0.74 mg/dL (0.51-0.95); Magnesium 1.8 mg/dL (1.9-2.7); Potassium 4.2 mmol/L (3.5-5.0); eGFR CKD-EPI 85.4 (>60)
[2022-09-07 06:38] LABS: ABS Lymphocytes 0.1 10^3/uL (1.0-4.8); ABS Monocytes 0.4 10^3/uL (0.0-0.9); ABS Neutrophils 5.6 10^3/uL (1.5-7.6); ABS Nucleated RBC 0.02 10^3/ul; Nucleated Red Blood Cells % 0.3 /100 WBC (0.0-0.4); RBC Morphology Normal (Normal)
[2022-09-07] MEDS: Aspirin EC 81 mg TAB.EC (enteric coated) PO SCH (09:03)
[2022-09-07] MEDS: Potassium Chlor 10 meq TAB PO SCH (09:06)
[2022-09-07] MEDS: Cholecalciferol (VIT D3) 400 units TAB PO SCH (09:08)
[2022-09-07] MEDS: cefTRIAXone 1 gm/50 mL D5W 1 GM/50 ML BAG IV SCH (09:09)
[2022-09-07] MEDS: Magic MouthWash1-BEN/MAAL/LIDO 180 ML BTL SWISH SPIT SCH ×4 (11:00→22:08)
[2022-09-07] MEDS: metroNIDAZOLE IV 500 MG/100ML 500 MG/100 ML BAG IVPB SCH ×2 (16:08→21:43)
[2022-09-08] MEDS: Albuterol/Ipratropium NEB.SOL (2.5/0.5 MG) 3 ML NEB.SOLN INH SCH ×6 (03:26→23:31)
[2022-09-08] MEDS: methylPREDNISolone SOD SUCC 40 mg/ml 1 ml VIAL IV SCH (06:13)
[2022-09-08] MEDS: metroNIDAZOLE IV 500 MG/100ML 500 MG/100 ML BAG IVPB SCH ×3 (06:13→22:35)
[2022-09-08] MEDS: Potassium Chlor 10 meq TAB PO SCH (09:16)
[2022-09-08] MEDS: Cholecalciferol (VIT D3) 400 units TAB PO SCH (09:16)
[2022-09-08] MEDS: Aspirin EC 81 mg TAB.EC (enteric coated) PO SCH (09:17)
[2022-09-08] MEDS: Magic MouthWash1-BEN/MAAL/LIDO 180 ML BTL SWISH SPIT SCH ×4 (09:19→20:22)
[2022-09-08] MEDS: cefTRIAXone 1 gm/50 mL D5W 1 GM/50 ML BAG IV SCH (09:28)
[2022-09-09] MEDS: Albuterol/Ipratropium NEB.SOL (2.5/0.5 MG) 3 ML NEB.SOLN INH SCH ×6 (03:39→20:43)
[2022-09-09] MEDS: metroNIDAZOLE IV 500 MG/100ML 500 MG/100 ML BAG IVPB SCH ×3 (05:59→22:26)
[2022-09-09 06:25] LABS: Hematocrit 26.2 % (35-45); Hemoglobin 8.9 g/dL (11.5-14.3); Mean Corpuscular Hemoglobin 30.2 pg (27-33); Mean Corpuscular Hgb Conc 33.9 g/dL (31-36); Mean Corpuscular Volume 89.3 fL (80-97); Mean Platelet Volume 6.3 fL (7.5-11.2); Platelet Count 631 10^3/uL (150-450); Red Blood Count 2.94 10^6/uL (3.63-4.92); Red Cell Distribution Width 14.9 % (12-17)
[2022-09-09 06:52] LABS: RBC Morphology Normal (Normal)
[2022-09-09 06:53] LABS: ABS Lymphocytes 0.4 10^3/uL (1.0-4.8); ABS Monocytes 0.5 10^3/uL (0.0-0.9); ABS Neutrophils 10.1 10^3/uL (1.5-7.6); ABS Nucleated RBC 0.02 10^3/ul; Eosinophil % 0.1 %; Lymphocyte % 3.9 %; Nucleated Red Blood Cells % 0.2 /100 WBC (0.0-0.4)
[2022-09-09] MEDS: Cholecalciferol (VIT D3) 400 units TAB PO SCH (09:09)
[2022-09-09] MEDS: Aspirin EC 81 mg TAB.EC (enteric coated) PO SCH (09:11)
[2022-09-09] MEDS: Magic MouthWash1-BEN/MAAL/LIDO 180 ML BTL SWISH SPIT SCH ×4 (09:14→21:17)
[2022-09-09] MEDS: Albuterol 2.5mg/3 ml (0.083%) NEB.SOLN INH PRN (09:23)
[2022-09-09] MEDS: Acetylcysteine INH SOL (RT) 200 MG/ML 4 ML VIAL INH SCH (19:31)
[2022-09-10] MEDS: Albuterol/Ipratropium NEB.SOL (2.5/0.5 MG) 3 ML NEB.SOLN INH SCH ×4 (00:10→19:50)
[2022-09-10] MEDS: Acetylcysteine INH SOL (RT) 200 MG/ML 4 ML VIAL INH SCH ×4 (00:11→19:51)
[2022-09-10] MEDS: Albuterol 2.5mg/3 ml (0.083%) NEB.SOLN INH PRN ×2 (04:12→17:39)
[2022-09-10] MEDS: metroNIDAZOLE IV 500 MG/100ML 500 MG/100 ML BAG IVPB SCH ×3 (05:44→20:32)
[2022-09-10] MEDS: Cholecalciferol (VIT D3) 400 units TAB PO SCH (08:57)
[2022-09-10] MEDS: Magic MouthWash1-BEN/MAAL/LIDO 180 ML BTL SWISH SPIT SCH ×4 (08:58→20:26)
[2022-09-10] MEDS: Aspirin EC 81 mg TAB.EC (enteric coated) PO SCH (08:58)
[2022-09-11] MEDS: Acetylcysteine INH SOL (RT) 200 MG/ML 4 ML VIAL INH SCH ×5 (00:24→18:15)
[2022-09-11] MEDS: Albuterol/Ipratropium NEB.SOL (2.5/0.5 MG) 3 ML NEB.SOLN INH SCH ×5 (00:24→18:15)
[2022-09-11] MEDS: metroNIDAZOLE IV 500 MG/100ML 500 MG/100 ML BAG IVPB SCH ×3 (05:17→22:17)
[2022-09-11 05:22] LABS: Hematocrit 24.2 % (35-45); Hemoglobin 8.3 g/dL (11.5-14.3); Mean Corpuscular Hemoglobin 31.1 pg (27-33); Mean Corpuscular Hgb Conc 34.1 g/dL (31-36); Mean Corpuscular Volume 91.4 fL (80-97); Mean Platelet Volume 5.8 fL (7.5-11.2); Platelet Count 546 10^3/uL (150-450); Red Blood Count 2.65 10^6/uL (3.63-4.92); Red Cell Distribution Width 15.5 % (12-17); White Blood Count 9.1 10^3/uL (3.8-11.8)
[2022-09-11 05:48] LABS: ABS Lymphocytes 0.3 10^3/uL (1.0-4.8); ABS Monocytes 0.6 10^3/uL (0.0-0.9); ABS Neutrophils 8.2 10^3/uL (1.5-7.6); Eosinophil % 0.1 %; Lymphocyte % 2.8 %
[2022-09-11 06:00] LABS: Calcium 8.3 mg/dL (8.6-10.3); Creatinine, Serum 0.71 mg/dL (0.51-0.95); Potassium 3.9 mmol/L (3.5-5.0); eGFR CKD-EPI 89.7 (>60)
[2022-09-11] MEDS: Aspirin EC 81 mg TAB.EC (enteric coated) PO SCH (10:15)
[2022-09-11] MEDS: Cholecalciferol (VIT D3) 400 units TAB PO SCH (10:15)
[2022-09-11] MEDS: Magic MouthWash1-BEN/MAAL/LIDO 180 ML BTL SWISH SPIT SCH ×4 (10:16→20:14)
[2022-09-11] MEDS: Albuterol 2.5mg/3 ml (0.083%) NEB.SOLN INH PRN ×2 (10:21→20:23)
[2022-09-12] MEDS: Albuterol/Ipratropium NEB.SOL (2.5/0.5 MG) 3 ML NEB.SOLN INH SCH ×4 (00:31→19:25)
[2022-09-12] MEDS: Acetylcysteine INH SOL (RT) 200 MG/ML 4 ML VIAL INH SCH ×4 (00:32→19:25)
[2022-09-12] MEDS: Albuterol 2.5mg/3 ml (0.083%) NEB.SOLN INH PRN ×2 (03:55→10:02)
[2022-09-12] MEDS: Magic MouthWash1-BEN/MAAL/LIDO 180 ML BTL SWISH SPIT SCH ×4 (08:21→20:21)
[2022-09-12] MEDS: Cholecalciferol (VIT D3) 400 units TAB PO SCH (08:21)
[2022-09-12] MEDS: Aspirin EC 81 mg TAB.EC (enteric coated) PO SCH (08:21)
[2022-09-13] MEDS: Acetylcysteine INH SOL (RT) 200 MG/ML 4 ML VIAL INH SCH ×4 (01:23→19:28)
[2022-09-13] MEDS: Albuterol/Ipratropium NEB.SOL (2.5/0.5 MG) 3 ML NEB.SOLN INH SCH ×4 (01:23→19:29)
[2022-09-13] MEDS: Cholecalciferol (VIT D3) 400 units TAB PO SCH (10:28)
[2022-09-13] MEDS: Aspirin EC 81 mg TAB.EC (enteric coated) PO SCH (10:28)
[2022-09-13] MEDS: Magic MouthWash1-BEN/MAAL/LIDO 180 ML BTL SWISH SPIT SCH ×4 (10:29→22:34)
[2022-09-13] MEDS: Albuterol 2.5mg/3 ml (0.083%) NEB.SOLN INH PRN (22:41)
[2022-09-14] MEDS: Albuterol/Ipratropium NEB.SOL (2.5/0.5 MG) 3 ML NEB.SOLN INH SCH ×4 (01:06→19:21)
[2022-09-14] MEDS: Acetylcysteine INH SOL (RT) 200 MG/ML 4 ML VIAL INH SCH ×4 (01:06→19:21)
[2022-09-14] MEDS: Cholecalciferol (VIT D3) 400 units TAB PO SCH (09:59)
[2022-09-14] MEDS: Aspirin EC 81 mg TAB.EC (enteric coated) PO SCH (09:59)
[2022-09-14] MEDS: Magic MouthWash1-BEN/MAAL/LIDO 180 ML BTL SWISH SPIT SCH ×4 (10:02→20:26)
[2022-09-15] MEDS: Albuterol/Ipratropium NEB.SOL (2.5/0.5 MG) 3 ML NEB.SOLN INH SCH ×5 (00:07→19:32)
[2022-09-15] MEDS: Acetylcysteine INH SOL (RT) 200 MG/ML 4 ML VIAL INH SCH ×4 (00:10→19:32)
[2022-09-15] MEDS: Cholecalciferol (VIT D3) 400 units TAB PO SCH (10:36)
[2022-09-15] MEDS: Aspirin EC 81 mg TAB.EC (enteric coated) PO SCH (10:36)
[2022-09-15] MEDS: Magic MouthWash1-BEN/MAAL/LIDO 180 ML BTL SWISH SPIT SCH ×4 (10:43→21:15)
[2022-09-15] MEDS ORDERED: guaiFENesin 100 mg/5 ml LIQ unit dose cup PO PRN (11:50)
[2022-09-15] MEDS: guaiFENesin 100 mg/5 ml LIQ unit dose cup PO SCH ×2 (17:39→21:14)
[2022-09-16] MEDS: guaiFENesin 100 mg/5 ml LIQ unit dose cup PO SCH ×6 (00:29→20:40)
[2022-09-16] MEDS: Acetylcysteine INH SOL (RT) 200 MG/ML 4 ML VIAL INH SCH ×5 (00:46→23:58)
[2022-09-16] MEDS: Albuterol/Ipratropium NEB.SOL (2.5/0.5 MG) 3 ML NEB.SOLN INH SCH ×5 (00:46→23:58)
[2022-09-16] MEDS: Albuterol 2.5mg/3 ml (0.083%) NEB.SOLN INH PRN (03:54)
[2022-09-16] MEDS: Cholecalciferol (VIT D3) 400 units TAB PO SCH (09:14)
[2022-09-16] MEDS: Aspirin EC 81 mg TAB.EC (enteric coated) PO SCH (09:15)
[2022-09-16] MEDS: Magic MouthWash1-BEN/MAAL/LIDO 180 ML BTL SWISH SPIT SCH ×4 (09:21→20:42)
[2022-09-17] MEDS: guaiFENesin 100 mg/5 ml LIQ unit dose cup PO SCH ×6 (00:15→21:34)
[2022-09-17] MEDS: Acetylcysteine INH SOL (RT) 200 MG/ML 4 ML VIAL INH SCH ×3 (07:28→19:13)
[2022-09-17] MEDS: Albuterol/Ipratropium NEB.SOL (2.5/0.5 MG) 3 ML NEB.SOLN INH SCH ×3 (07:28→19:13)
[2022-09-17] MEDS: Magic MouthWash1-BEN/MAAL/LIDO 180 ML BTL SWISH SPIT SCH (09:22)
[2022-09-17] MEDS: Cholecalciferol (VIT D3) 400 units TAB PO SCH (09:23)
[2022-09-17] MEDS: Aspirin EC 81 mg TAB.EC (enteric coated) PO SCH (09:24)
[2022-09-17] MEDS: Magic MW-DIPH/MAG-AL-SIME/LIDO FIRST BLM KIT SWISH SPIT SCH ×3 (15:48→21:06)
[2022-09-17] MEDS: Albuterol 2.5mg/3 ml (0.083%) NEB.SOLN INH PRN (17:47)
[2022-09-18] MEDS: guaiFENesin 100 mg/5 ml LIQ unit dose cup PO SCH ×6 (00:11→20:41)
[2022-09-18] MEDS: Acetylcysteine INH SOL (RT) 200 MG/ML 4 ML VIAL INH SCH ×4 (01:43→19:20)
[2022-09-18] MEDS: Albuterol/Ipratropium NEB.SOL (2.5/0.5 MG) 3 ML NEB.SOLN INH SCH ×4 (01:43→19:19)
[2022-09-18 06:20] LABS: Hematocrit 27.5 % (35-45); Hemoglobin 9.3 g/dL (11.5-14.3); Mean Corpuscular Hemoglobin 30.9 pg (27-33); Mean Corpuscular Hgb Conc 33.8 g/dL (31-36); Mean Corpuscular Volume 91.4 fL (80-97); Mean Platelet Volume 5.7 fL (7.5-11.2); Platelet Count 454 10^3/uL (150-450); Red Blood Count 3.01 10^6/uL (3.63-4.92); White Blood Count 6.6 10^3/uL (3.8-11.8)
[2022-09-18 06:49] LABS: Calcium 8.7 mg/dL (8.6-10.3); Creatinine, Serum 0.74 mg/dL (0.51-0.95); Potassium 3.4 mmol/L (3.5-5.0); eGFR CKD-EPI 85.4 (>60)
[2022-09-18 09:32] LABS: ABS Lymphocytes 0.3 10^3/uL (1.0-4.8); ABS Monocytes 0.5 10^3/uL (0.0-0.9); ABS Neutrophils 5.8 10^3/uL (1.5-7.6); ABS Nucleated RBC 0.01 10^3/ul; Eosinophil % 0.4 %; Lymphocyte % 3.8 %; Nucleated Red Blood Cells % 0.2 /100 WBC (0.0-0.4)
[2022-09-18] MEDS: Aspirin EC 81 mg TAB.EC (enteric coated) PO SCH (10:01)
[2022-09-18] MEDS: Cholecalciferol (VIT D3) 400 units TAB PO SCH (10:01)
[2022-09-18] MEDS: Magic MW-DIPH/MAG-AL-SIME/LIDO FIRST BLM KIT SWISH SPIT SCH ×4 (11:02→20:39)
[2022-09-19] MEDS: guaiFENesin 100 mg/5 ml LIQ unit dose cup PO SCH ×5 (00:22→11:31)
[2022-09-19] MEDS: Albuterol/Ipratropium NEB.SOL (2.5/0.5 MG) 3 ML NEB.SOLN INH SCH ×3 (01:14→13:50)
[2022-09-19] MEDS: Acetylcysteine INH SOL (RT) 200 MG/ML 4 ML VIAL INH SCH ×3 (01:14→13:51)
[2022-09-19] MEDS: Albuterol 2.5mg/3 ml (0.083%) NEB.SOLN INH PRN (08:53)
[2022-09-19] MEDS: Cholecalciferol (VIT D3) 400 units TAB PO SCH (09:23)
[2022-09-19] MEDS: Magic MW-DIPH/MAG-AL-SIME/LIDO FIRST BLM KIT SWISH SPIT SCH (09:23)
[2022-09-19] MEDS: Aspirin EC 81 mg TAB.EC (enteric coated) PO SCH (09:31)
[2022-09-19] MEDS ORDERED: Morphine ORAL CONCENTRATE 5 MG/0.25 ML ORAL.SYRIN PO PRN (11:01)
[2022-09-19 12:32] VITALS: BP 111/66
== END 2022-09-19 14:00 | disposition swing bed (61) | DRG 193 ==
LOC: ED 10:51 → EDHOLD 16:00 → SUATTDRO 16:00 → EDHOLD 09-02 09:41 → MEDTELE 09-02 10:53
PROVIDERS: ADMIT Hospitalist; ATTEND Internal Medicine

== ENCOUNTER 2023-06-04 09:27 | Observation (INO) ==
[2023-06-04] MEDS ORDERED: Azithromycin 500 mg/250 ml NS 500 MG/250 ML BAG IVPB ONE (09:36)
[2023-06-04] MEDS ORDERED: cefTRIAXone 1 gm/50 mL D5W 1 GM/50 ML BAG IV ONE (09:36)
[2023-06-04 09:57] LABS: ABS Lymphocytes 0.4 10^3/uL (1.0-4.8); ABS Neutrophils 16.1 10^3/uL (1.5-7.6); Hematocrit 29.7 % (35-45); Hemoglobin 9.8 g/dL (11.5-14.3); Lymphocyte % 2.3 %; Mean Corpuscular Hemoglobin 30.1 pg (27-33); Mean Corpuscular Hgb Conc 32.9 g/dL (31-36); Mean Corpuscular Volume 91.5 fL (80-97); Mean Platelet Volume 6.6 fL (7.5-11.2); Platelet Count 381 10^3/uL (150-450); Red Blood Count 3.25 10^6/uL (3.63-4.92); Red Cell Distribution Width 15.1 % (12-17); White Blood Count 17.6 10^3/uL (3.8-11.8)
[2023-06-04] MEDS ORDERED: Acetaminophen IV 1 GM/100ML 1,000 MG/100 ML BAG IV ONE (10:04)
[2023-06-04 10:16] LABS: Albumin 3.7 g/dL (3.2-5.2); Albumin/Globulin Ratio 1.4 (1-3); C Reactive Protein 67.25 mg/L (<8.01); Creatinine, Serum 0.7 mg/dL (0.51-0.95); Globulin 2.6 g/dL (2-4); Potassium 3.6 mmol/L (3.5-5.0); Total Bilirubin 0.4 mg/dL (0.2-1.0); Total Protein 6.3 g/dL (6.4-8.9); eGFR CKD-EPI 90.7 (>60)
[2023-06-04 10:18] LABS: Activated Partial Thrombo Time 36.6 seconds (26.0-38.0); INR 1.52 (0.83-1.13)
[2023-06-04 11:23] LABS: High Sensitivity Troponin 1 Hr 13 pg/mL (<15)
[2023-06-04] MEDS ORDERED: Albuterol/Ipratropium NEB.SOL (2.5/0.5 MG) 3 ML NEB.SOLN INH SCH (17:00)
[2023-06-04] MEDS ORDERED: Mometasone/Formoter 200/5 MDI INH SCH (19:00)
[2023-06-04] MEDS ORDERED: Lactated Ringers 1000 ml BAG 1,000 ML IV SCH (19:00)
[2023-06-04] MEDS: Albuterol/Ipratropium NEB.SOL (2.5/0.5 MG) 3 ML NEB.SOLN INH SCH (20:19)
[2023-06-04] MEDS ORDERED: Senna TAB 8.6 mg TAB PO SCH (21:00)
[2023-06-04] MEDS: Acetylcysteine ORAL SOL 200 mg/ml 30 ml VIAL PO SCH (23:50)
[2023-06-05] MEDS: Albuterol/Ipratropium NEB.SOL (2.5/0.5 MG) 3 ML NEB.SOLN INH SCH ×3 (00:54→13:55)
[2023-06-05 06:28] LABS: Hematocrit 24.1 % (35-45); Hemoglobin 7.9 g/dL (11.5-14.3); Mean Corpuscular Hemoglobin 30.1 pg (27-33); Mean Corpuscular Volume 91.2 fL (80-97); Mean Platelet Volume 6.6 fL (7.5-11.2); Platelet Count 300 10^3/uL (150-450); Red Blood Count 2.64 10^6/uL (3.63-4.92); Red Cell Distribution Width 15.3 % (12-17); White Blood Count 13.6 10^3/uL (3.8-11.8)
[2023-06-05 06:48] LABS: Calcium 8.2 mg/dL (8.6-10.3); Creatinine, Serum 0.65 mg/dL (0.51-0.95); Magnesium 1.6 mg/dL (1.9-2.7); Potassium 3.4 mmol/L (3.5-5.0); eGFR CKD-EPI 92.3 (>60)
[2023-06-05] MEDS ORDERED: Magnesium Sulf 4 GM/100 ML IV 4,000 MG/100 ML BAG IVPB ONE (09:00)
[2023-06-05] MEDS ORDERED: FLUTICAS/UMECLI/VILANT 100-62.5-25 MDI (NF) INH SCH (09:00)
[2023-06-05] MEDS: Magnesium Hydroxide LIQ 30 ML UDC PO SCH ×2 (09:12→09:18)
[2023-06-05] MEDS ORDERED: Azithromycin 500 mg/250 ml NS 500 MG/250 ML BAG IVPB SCH (09:30)
[2023-06-05] MEDS ORDERED: cefTRIAXone 1 gm/50 mL D5W 1 GM/50 ML BAG IV SCH (09:30)
[2023-06-05] MEDS ORDERED: Potassium Chlor 20 meq TAB.ER PO ONE (09:30)
[2023-06-05 09:51] VITALS: BP 125/74
[2023-06-05] MEDS: Acetylcysteine ORAL SOL 200 mg/ml 30 ml VIAL PO SCH (10:17)
== END 2023-06-05 15:45 ==
LOC: ED 09:27 → EDHOLD 09:27 → MED 16:08
PROVIDERS: ADMIT Hospitalist; ATTEND Hospitalist

== ENCOUNTER 2023-07-02 11:07 | Observation (INO) ==
[2023-07-02 11:53] LABS: ABS Eosinophils 0.6 10^3/uL (0.0-0.5); ABS Lymphocytes 0.2 10^3/uL (1.0-4.8); ABS Monocytes 0.5 10^3/uL (0.0-0.9); ABS Neutrophils 5.7 10^3/uL (1.5-7.6); ABS Nucleated RBC 0.01 10^3/ul; Hematocrit 26.4 % (35-45); Hemoglobin 8.6 g/dL (11.5-14.3); Lymphocyte % 2.2 %; Mean Corpuscular Hemoglobin 29.1 pg (27-33); Mean Corpuscular Hgb Conc 32.7 g/dL (31-36); Mean Corpuscular Volume 88.9 fL (80-97); Mean Platelet Volume 6.3 fL (7.5-11.2); Nucleated Red Blood Cells % 0.1 %/100WBC (0.0-0.8); Platelet Count 370 10^3/uL (150-450); Red Blood Count 2.96 10^6/uL (3.63-4.92); Red Cell Distribution Width 15.6 % (12-17)
[2023-07-02] MEDS: Lactated Ringers 1000 ml BAG 1,000 ML IV ONE (11:58)
[2023-07-02] MEDS: Cefepime 2 GM in Dextrose 2 GM/50 ML BAG IV ONE (11:58)
[2023-07-02 12:04] LABS: Activated Partial Thrombo Time 35.3 seconds (26.0-38.0); INR 1.63 (0.83-1.13)
[2023-07-02] MEDS: Albuterol/Ipratropium NEB.SOL (2.5/0.5 MG) 3 ML NEB.SOLN INH ONE (12:13)
[2023-07-02 12:25] LABS: Albumin 3.5 g/dL (3.2-5.2); Albumin/Globulin Ratio 1.5 (1-3); C Reactive Protein 85.15 mg/L (<8.01); Calcium 8.7 mg/dL (8.6-10.3); Creatinine, Serum 0.81 mg/dL (0.51-0.95); Globulin 2.4 g/dL (2-4); Total Bilirubin 0.2 mg/dL (0.2-1.0); Total Protein 5.9 g/dL (6.4-8.9); eGFR CKD-EPI 76.1 (>60)
[2023-07-02] MEDS: Azithromycin 500 mg/250 ml NS 500 MG/250 ML BAG IVPB ONE (12:35)
[2023-07-02 13:13] LABS: High Sensitivity Troponin 1 Hr 10 pg/mL (<15)
[2023-07-02] MEDS: Iodixanol (CONTRAST) 320 MG/ML 100 ML SDV IV ONE (13:35)
[2023-07-02] MEDS: Morphine 4 MG/ML VIAL (1 ml) IV ONE (13:40)
[2023-07-02] MEDS: Albuterol/Ipratropium NEB.SOL (2.5/0.5 MG) 3 ML NEB.SOLN INH SCH (14:47)
[2023-07-02] MEDS ORDERED: Albuterol/Ipratropium NEB.SOL (2.5/0.5 MG) 3 ML NEB.SOLN INH PRN ×2 (16:19→18:53)
[2023-07-02] MEDS ORDERED: Albuterol/Ipratropium NEB.SOL (2.5/0.5 MG) 3 ML NEB.SOLN INH SCH (19:00)
[2023-07-02] MEDS: Senna TAB 8.6 mg TAB PO SCH (20:23)
[2023-07-02] MEDS: Clotrimazole 1% CREAM 30 gm TOPICAL SCH (20:25)
[2023-07-02] MEDS ORDERED: Senna/Docusate 8.6/50 mg (NF) TAB PO SCH (21:00)
[2023-07-02] MEDS ORDERED: Budesonide/Formote 160/4.5(NF) MDI INH SCH (21:00)
[2023-07-02] MEDS: Ondansetron 4 mg VIAL 2 MG/ML 2 ml VIAL IV PRN (21:48)
[2023-07-03] MEDS ORDERED: Ondansetron 4 mg VIAL 2 MG/ML 2 ml VIAL IV PRN (02:04)
[2023-07-03] MEDS: Levalbuterol HFA INHALER MDI INH PRN (02:47)
[2023-07-03] MEDS ORDERED: Albuterol/Ipratropium NEB.SOL (2.5/0.5 MG) 3 ML NEB.SOLN INH PRN (02:51)
[2023-07-03] MEDS ORDERED: Albuterol/Ipratropium NEB.SOL (2.5/0.5 MG) 3 ML NEB.SOLN INH SCH ×2 (03:00→10:00)
[2023-07-03] MEDS: Albuterol 2.5mg/3 ml (0.083%) NEB.SOLN INH SCH (03:11)
[2023-07-03] MEDS ORDERED: Albuterol 2.5mg/3 ml (0.083%) NEB.SOLN INH PRN (03:41)
[2023-07-03 05:46] LABS: ABS Lymphocytes 0.2 10^3/uL (1.0-4.8); ABS Monocytes 0.2 10^3/uL (0.0-0.9); ABS Neutrophils 4.8 10^3/uL (1.5-7.6); Hematocrit 27.4 % (35-45); Hemoglobin 9.1 g/dL (11.5-14.3); Lymphocyte % 4.3 %; Mean Corpuscular Hemoglobin 29.6 pg (27-33); Mean Corpuscular Hgb Conc 33.3 g/dL (31-36); Mean Corpuscular Volume 89.1 fL (80-97); Mean Platelet Volume 6.5 fL (7.5-11.2); Nucleated Red Blood Cells % 0.1 %/100WBC (0.0-0.8); Platelet Count 365 10^3/uL (150-450); Red Blood Count 3.08 10^6/uL (3.63-4.92); Red Cell Distribution Width 15.3 % (12-17); White Blood Count 5.2 10^3/uL (3.8-11.8)
[2023-07-03 06:03] LABS: Calcium 8.6 mg/dL (8.6-10.3); Creatinine, Serum 0.66 mg/dL (0.51-0.95); Potassium 4.1 mmol/L (3.5-5.0)
[2023-07-03] MEDS: CMCS: FLUTICAS/UMECLI/VILANT 100-62.5-25 MDI (NF) INH SCH (07:34)
[2023-07-03] MEDS ORDERED: cefTRIAXone 1 gm/50 mL D5W 1 GM/50 ML BAG IV SCH (08:00)
[2023-07-03] MEDS: cefTRIAXone 1 gm/50 mL D5W 1 GM/50 ML BAG IV SCH (08:55)
[2023-07-03] MEDS ORDERED: Azithromycin 500 mg/250 ml NS 500 MG/250 ML BAG IVPB SCH (09:00)
[2023-07-03] MEDS: Azithromycin 500 mg/250 ml NS 500 MG/250 ML BAG IVPB SCH (09:50)
[2023-07-04 09:55] LABS: ABS Lymphocytes 0.4 10^3/uL (1.0-4.8); ABS Monocytes 0.2 10^3/uL (0.0-0.9); ABS Neutrophils 1.9 10^3/uL (1.5-7.6); Eosinophil % 0.3 %; Hematocrit 25.7 % (35-45); Hemoglobin 8.5 g/dL (11.5-14.3); Lymphocyte % 16.9 %; Mean Corpuscular Hemoglobin 29.1 pg (27-33); Mean Corpuscular Hgb Conc 32.9 g/dL (31-36); Mean Corpuscular Volume 88.4 fL (80-97); Mean Platelet Volume 6.5 fL (7.5-11.2); Platelet Count 374 10^3/uL (150-450); Red Blood Count 2.91 10^6/uL (3.63-4.92); Red Cell Distribution Width 15.4 % (12-17); White Blood Count 2.6 10^3/uL (3.8-11.8)
[2023-07-04 10:13] LABS: Calcium 8.8 mg/dL (8.6-10.3); Creatinine, Serum 0.7 mg/dL (0.51-0.95); eGFR CKD-EPI 90.7 (>60)
[2023-07-04 14:05] VITALS: BP 120/70
== END 2023-07-04 15:05 ==
LOC: ED 11:07 → EDHOLD 11:07 → MED 15:51
PROVIDERS: ADMIT Student in an Organized Health Care Education/Training Program; ATTEND Student in an Organized Health Care Education/Training Program

== ENCOUNTER 2023-12-01 17:25 | Inpatient (IN) ==
[2023-12-01 18:27] LABS: ABS Eosinophils 0.1 10^3/uL (0.0-0.5); ABS Lymphocytes 0.4 10^3/uL (1.0-4.8); ABS Monocytes 1.3 10^3/uL (0.0-0.9); Eosinophil % 0.8 %; Lymphocyte % 4.7 %; Mean Corpuscular Hemoglobin 29.8 pg (27-33); Mean Corpuscular Hgb Conc 31.7 g/dL (31-36); Mean Corpuscular Volume 93.9 fL (80-97); Mean Platelet Volume 6.6 fL (7.5-11.2); Platelet Count 313 10^3/uL (150-450); Red Cell Distribution Width 18.4 % (12-17)
[2023-12-01 18:49] LABS: C Reactive Protein 304.5 mg/L (<8.01); Magnesium 2.1 mg/dL (1.9-2.7)
[2023-12-01 20:03] LABS: PCO2 Arterial 44 mmHg (35-45); PO2 Arterial 122 mmHg (80-100)
[2023-12-01 20:12] LABS: Hematocrit 31.3 % (35-45); Hemoglobin 9.9 g/dL (11.5-14.3); Red Blood Count 3.33 10^6/uL (3.63-4.92); White Blood Count 8.8 10^3/uL (3.8-11.8)
[2023-12-01 20:16] LABS: High Sensitivity Troponin 1 Hr 8 pg/mL (<15)
[2023-12-01] MEDS ORDERED: Acetaminophen IV 1 GM/100ML 1,000 MG/100 ML BAG IV ONE (20:29)
[2023-12-01] MEDS: Acetaminophen IV 1 GM/100ML 1,000 MG/100 ML BAG IV ONE (20:35)
[2023-12-01] MEDS: Nitro 2% OINT (Nitroglycerin) 1 INCH/PAK TOPICAL ONE (20:46)
[2023-12-01] MEDS: Furosemide 20 mg/2 ml IV VIAL IV SLOW PU ONE (20:46)
[2023-12-01] MEDS: methylPREDNISolone SOD SUCC 125 mg 2 ML VIAL IV ONE (20:47)
[2023-12-01] MEDS: Cefepime 2 GM in Dextrose 2 GM/50 ML BAG IV ONE (20:47)
[2023-12-01 20:53] LABS: Albumin 3.7 g/dL (3.2-5.2); Creatinine, Serum 0.68 mg/dL (0.51-0.95); Potassium 4.1 mmol/L (3.5-5.0); Total Bilirubin 0.6 mg/dL (0.2-1.0); eGFR CKD-EPI 91.3 (>60)
[2023-12-01 20:58] LABS: Albumin/Globulin Ratio 1.3 (1-3); Globulin 2.9 g/dL (2-4); Total Protein 6.6 g/dL (6.4-8.9)
[2023-12-01] MEDS: Vancomycin 1,000 MG in NS 0.9% 250 ml 250 ML IVPB ONE (22:04)
[2023-12-01] MEDS: Iohexol 350 (CONTRAST) 500 ML MDV IV ONE (22:43)
[2023-12-01] MEDS: Azithromycin 500 mg/250 ml NS 500 MG/250 ML BAG IVPB SCH (23:12)
[2023-12-01] MEDS: Albuterol/Ipratropium NEB.SOL (2.5/0.5 MG) 3 ML NEB.SOLN INH SCH (23:37)
[2023-12-02 00:01] LABS: Urine Appearance Clear; Urine Bilirubin Negative (Negative); Urine Blood Negative (Negative); Urine Color Colorless; Urine Glucose Negative (Negative); Urine Ketones 1+ (Negative); Urine Nitrite Negative (Negative); Urine Protein Negative (Negative); Urine Specific Gravity 1.015 (1.002-1.030); Urine Urobilinogen Negative (Negative); Urine pH 5.5 (5.0-8.0)
[2023-12-02] MEDS: cefTRIAXone 1 gm/50 mL D5W 1 GM/50 ML BAG IV SCH (04:36)
[2023-12-02] MEDS: Mometasone/Formoter 200/5 MDI INH SCH (08:19)
[2023-12-02] MEDS ORDERED: FLUTICAS/UMECLI/VILANT 100-62.5-25 MDI (NF) INH SCH (09:00)
[2023-12-02] MEDS: Azithromycin 500 mg/250 ml NS 500 MG/250 ML BAG IVPB SCH (10:16)
[2023-12-03 05:40] LABS: ABS Lymphocytes 0.3 10^3/uL (1.0-4.8); ABS Monocytes 0.7 10^3/uL (0.0-0.9); ABS Neutrophils 4.6 10^3/uL (1.5-7.6); ABS Nucleated RBC 0.01 10^3/ul; Hematocrit 25.8 % (35-45); Hemoglobin 8.7 g/dL (11.5-14.3); Lymphocyte % 5.6 %; Mean Corpuscular Hemoglobin 31.2 pg (27-33); Mean Corpuscular Hgb Conc 33.6 g/dL (31-36); Mean Corpuscular Volume 92.9 fL (80-97); Mean Platelet Volume 6.6 fL (7.5-11.2); Nucleated Red Blood Cells % 0.1 %/100WBC (0.0-0.8); Platelet Count 309 10^3/uL (150-450); Red Blood Count 2.78 10^6/uL (3.63-4.92); Red Cell Distribution Width 18.1 % (12-17); White Blood Count 5.7 10^3/uL (3.8-11.8)
[2023-12-03] MEDS ORDERED: Senna TAB 8.6 mg TAB PO PRN (08:36)
[2023-12-03] MEDS ORDERED: Polyethylene Glycol 3350 17 GM PACKET PO PRN (08:36)
[2023-12-03] MEDS ORDERED: Magnesium Hydroxide LIQ 30 ML UDC PO PRN (08:36)
[2023-12-03] MEDS: methylPREDNISolone SOD SUCC 40 mg/ml 1 ml VIAL IV SCH (09:22)
[2023-12-03] MEDS ORDERED: Albuterol HFA INHALER 8 gm MDI INH PRN (15:16)
[2023-12-03] MEDS: guaiFENesin 100 mg/5 ml LIQ unit dose cup PO PRN (21:49)
[2023-12-04] MEDS: Albuterol/Ipratropium NEB.SOL (2.5/0.5 MG) 3 ML NEB.SOLN INH SCH (01:32)
[2023-12-04] MEDS: Labetalol IV 5 MG/ML 20 ml VIAL IV PUSH ONE (02:53)
[2023-12-04 06:22] LABS: Hemoglobin 8.9 g/dL (11.5-14.3); Mean Corpuscular Hemoglobin 30.6 pg (27-33); Mean Corpuscular Hgb Conc 32.8 g/dL (31-36); Mean Corpuscular Volume 93.1 fL (80-97); Mean Platelet Volume 6.9 fL (7.5-11.2); Platelet Count 344 10^3/uL (150-450); Red Cell Distribution Width 18.3 % (12-17)
[2023-12-04 06:32] LABS: Calcium 8.5 mg/dL (8.6-10.3); Creatinine, Serum 0.73 mg/dL (0.51-0.95); Potassium 3.8 mmol/L (3.5-5.0); eGFR CKD-EPI 86.2 (>60)
[2023-12-04 08:18] LABS: ABS Lymphocytes 0.3 10^3/uL (1.0-4.8); ABS Monocytes 0.3 10^3/uL (0.0-0.9); ABS Neutrophils 4.3 10^3/uL (1.5-7.6); Anisocytosis 1+; Hypochromasia 1+; Lymphocyte % 6.5 %; Nucleated Red Blood Cells % 0.1 %/100WBC (0.0-0.8)
[2023-12-04 10:43] VITALS: BP 160/93
[2023-12-04] MEDS: Albuterol HFA INHALER 8 gm MDI INH PRN (13:21)
== END 2023-12-04 13:50 | DRG 190 ==
LOC: EDHOLD 17:25 → ED 17:25 → SUATTDRO 22:46 → MED 12-02 20:27
PROVIDERS: ADMIT Hospitalist; ATTEND Hospitalist